=== PATIENT | male | born 1960 | race American Indian/Alaskan Native ===

== ENCOUNTER 2017-01-08 09:28 | Emergency (ER) | payer BC ==
[2017-01-08] MEDS ORDERED: APRESOLINE IV ONE ×2 (10:22→11:26)
--- NOTE | 2017-01-08 10:24 | Emergency Department Report ---
HPI - General Chief Complaint: High BP Time Seen by Provider: 01/08/17 10:10 - HPI HPI: This is a 56-year-old -[place] male who presents to the emergency department, driving himself in to be seen, with complaint of uncontrolled blood pressure and headaches. The headaches have been going on for the past year intermittently but he had a bad headache last night that went into this morning that brought him in to be seen today. The patient was seen by his primary care service on Saturday and a fourth blood pressure medication, amlodipine, was added to his regiment at 5 mg per day. He is also on lisinopril-Hydrochlorothiazide 25/12.5 mg and metoprolol 50 mg daily. He denies any vision change, slurred speech, chest pain, shortness of breath or any neurological deficits. He also has a history of non-insulin dependent diabetes. Patient says that he does not smoke tobacco or use alcohol or any illicit drugs. He does drink 1-2 cups of caffeinated coffee per day. He denies a high salt diet. No recent travel or sick contacts at home. He did not take anything for the headache discomfort prior to presentation. ED Past Medical Hx - Past Medical History Previous Medical History?: Yes Hx Hypertension: Yes Hx Diabetes: Yes - Surgical History Past Surgical History?: Yes Hx Appendectomy: Yes - Social History Smoking Status: Never Smoker Substance Use Type: Prescribed - Medications Home Medications: Home Medications Medication Instructions Recorded Confirmed Last Taken Type HYDROcodone/APAP 5-325 [[place] 1 each PO Q6HR PRN #10 tablet 01/08/17 Unknown Rx 5/325] Lisinopril/Hydrochlorothiazide 1 tab PO DAILY 01/08/17 01/08/17 01/08/17 History Metformin HCl [Fortamet ER] 1,000 mg PO BID 01/08/17 01/08/17 01/07/17 History Metoprolol [Lopressor TAB] 50 mg PO DAILY 01/08/17 01/08/17 01/08/17 History amLODIPine 5 mg PO DAILY 01/08/17 01/08/17 01/08/17 History ED Review of Systems ROS: Stated complaint: HBP Other details as noted in HPI Constitutional: denies: chills, fever Eyes: denies: eye pain, eye discharge, vision change ENT: denies: ear pain, throat pain Respiratory: denies: cough, shortness of breath, wheezing Cardiovascular: denies: chest pain, palpitations Gastrointestinal: denies: abdominal pain, nausea, diarrhea Genitourinary: denies: urgency, dysuria Musculoskeletal: denies: back pain, joint swelling, arthralgia Skin: denies: rash, lesions Neurological: headache. denies: weakness Physical Exam - Physical Exam Vital Signs: Vital Signs 01/08/17 09:43 Temperature 98 F Pulse Rate 79 Respiratory 18 Rate Blood Pressure 182/124 O2 Sat by Pulse 99 Oximetry Physical Exam: GENERAL: The patient is well-developed well-nourished. HEENT: Normocephalic. Atraumatic. Extraocular motions are intact. Patient has moist mucous membranes. Pupils equal reactive to light bilaterally. No nystagmus. NECK: Supple. Trachea is midline. CHEST/LUNGS: Clear to auscultation. There is no respiratory distress noted. HEART/CARDIOVASCULAR: Regular. There is no tachycardia. There is no gallop rub or murmur. ABDOMEN: Abdomen is soft, nontender. Patient has normal bowel sounds. There is no abdominal distention. SKIN: There is no rash. There is no edema. There is no diaphoresis. NEURO: The patient is awake, alert, and oriented. The patient is cooperative. The patient has no focal neurologic deficits. The patient has normal speech. Cranial nerves II through XII grossly intact. MUSCULOSKELETAL: There is no tenderness or deformity. There is no limitation range of motion. There is no evidence of acute injury. ED Course Vital Signs 01/08/17 09:43 Temperature 98 F Pulse Rate 79 Respiratory 18 Rate Blood Pressure 182/124 O2 Sat by Pulse 99 Oximetry ED Medical Decision Making - Lab Data Result diagrams: 01/08/17 Unknown 01/08/17 Unknown - EKG Data -: EKG Interpreted by [facility] EKG shows normal: sinus rhythm, axis, intervals, QRS complexes, ST-T waves (T- wave inversion to the lateral leads) Rate: normal - EKG Data When compared to previous EKG there are: previous EKG unavailable Interpretation: other (sinus rhythm, T-wave inversion to the lateral leads) - Radiology Data Radiology results: report reviewed CT of the head does not show any acute process including no hemorrhage, mass, shift, diffuse edema or skull fracture. - Medical Decision Making 56-year-old male presents to the emergency department with complaint of uncontrolled blood pressure and a headache. Patient was given 2 different doses of 10 mg hydralazine and his blood pressure came down to much more reasonable level. Patient's labs are unremarkable. CT of the head did not show any bleed, shift, mass or any acute process. Patient has no focal, motor or sensory deficits. Cranial nerves are intact. The patient is currently on for blood pressure medications but has room to move up on each of them for the doses. He will follow-up with his primary care doctor for blood pressure medication changes. He will return to the ER with any worsening symptoms or any acute distress. Critical Care Time: No Critical care attestation.: If time is entered above; I have spent that time in minutes in the direct care of this critically ill patient, excluding procedure time. ED Disposition Clinical Impression: Hypertensive urgency Headache Qualifiers: Headache type: unspecified Headache chronicity pattern: episodic headache Intractability: not intractable Qualified Code(s): R51 - Headache Disposition: DISCHARGED TO HOME OR SELFCARE Is pt being admited?: No Condition: Stable Instructions: Acute Headache (ED), Hypertension (ED) Additional Instructions: Please follow-up with your primary care doctor. Keep a blood pressure log. Try to stay away from foods that is high in salt caffeinated products to assist with her blood pressure. Return to the emergency department with any worsening of your symptoms or any acute distress. You've been prescribed a medication that is sedating. Therefore this medication cannot be mixed with alcohol, or taken prior to driving, working, or being responsible for children. Prescriptions: HYDROcodone/APAP 5-325 [[place] 5/325] 1 each PO Q6HR PRN #10 tablet PRN Reason: Pain Referrals: PRIMARY CARE, [Primary Care Provider] - 3-5 Days Time of Disposition: 14:39
[2017-01-08 11:10] LABS: Anion Gap 18 mmol/L; BUN/Creatinine Ratio 14.54; Basophils % (Auto) 0.5 % (0.0-1.8); Blood Urea Nitrogen 16 mg/dL (9-20); Calcium 9.8 mg/dL (8.4-10.2); Carbon Dioxide 27 mmol/L (22-30); Chloride 97.9 mmol/L (98-107); Eosinophils % (Auto) 1.4 % (0.0-4.3); Glucose 174 mg/dL (75-100); Hematocrit 49.2 % (35.5-45.6); Hemoglobin 16.9 gm/dl (11.8-15.2); Mean Corpuscular HGB Conc 34 % (32-34); Mean Corpuscular Hemoglobin 31 pg (28-32); Mean Corpuscular Volume 90 fl (84-94); Platelet Count 198 K/mm3 (140-440); Potassium 4.1 mmol/L (3.6-5.0); Red Blood Count 5.46 M/mm3 (3.65-5.03); Red Cell Distribution Width 12.9 % (13.2-15.2); Sodium 139 mmol/L (137-145); White Blood Count 9.6 K/mm3 (4.5-11.0)
[2017-01-08 12:54] LABS: Bilirubin,Urine NEG (Negative); Blood,Urine NEG (Negative); Ketones,Urine TR mg/dL (Negative); Leukocyte Esterase,Urine NEG (Negative); Nitrite,Urine NEG (Negative); Protein,Urine <15 mg/dL mg/dL (Negative); Urobilinogen,Urine < 2.0 mg/dL (<2.0); WBC,Urine < 1.0 /HPF (0.0-6.0)
[2017-01-08] MEDS ORDERED: TYLENOL PO ONE (13:09)
[2017-01-08 13:23] VITALS: BP 164/93
--- NOTE | 2017-01-08 14:19 | Cat Scan Report ---
Cranial CT without contrast. History: Headache, hypertension. Findings: The brain parenchyma is normal. There is no evidence of hemorrhage, mass, or acute infarct. No extra-axial collections are seen. The posterior fossa is normal. The ventricles are unremarkable. The calvarium is intact. There is a round soft tissue opacity in the left maxillary sinus, partially imaged. Impression: 1. No intracranial abnormalities. 2. Left maxillary sinus polyp or retention cyst, partially imaged.
== END 2017-01-08 14:50 | disposition home or self-care (01) ==
LOC: ED 09:28
DX: I10 Essential (primary) hypertension (principal); R51 Headache; E11.9 Type 2 diabetes mellitus without complications
CPT/HCPCS: 36415; 70450; 80048; 81001; 85025; 93005; 93010; 96374; 96376; 99284; J0360

== ENCOUNTER 2017-06-09 21:06 | Emergency (ER) | payer BC ==
--- NOTE | 2017-06-09 22:11 | Cat Scan Report ---
FINAL REPORT EXAM: CT HEAD/BRAIN WO CON HISTORY: headache TECHNIQUE: Noncontrast serial axial images from skull base to vertex. PRIORS: None. FINDINGS: There is no mass effect or midline shift. There are no abnormal intra or extra-axial fluid collections. Cortical sulci and lateral ventricles are within normal limits for size and configuration. Basilar cisterns are patent. No acute intracranial hemorrhage is identified. Mucosal thickening is seen in the left maxillary sinus. This is incompletely evaluated this study. No acute osseous abnormality is identified. IMPRESSION: 1. No abnormal mass or acute intracranial hemorrhage is identified.
[2017-06-10] MEDS ORDERED: FIORICET PO ONE (01:13)
--- NOTE | 2017-06-10 02:11 | Emergency Department Report ---
ED General Adult HPI - General Chief complaint: Headache Stated complaint: R SIDE HEAD PAIN Time Seen by Provider: 06/10/17 01:13 Source: patient Mode of arrival: Ambulatory Limitations: No Limitations - History of Present Illness Initial comments: Patient is a 56-year-old male no significant past medical history presents with head pain that's been going on since Saturday. Patient states that the pain was sudden and it occurred at the back of his head. The pain is a 4 out of 10 he states he noticed some swelling to the back of his head. He states touching his head makes the pain worse and nothing makes it better. The pain does not radiate anywhere. Patient uses a razor to shave his head. He noticed some swelling and is discoloration on his scalp. She isn't complaining of any other symptoms. Severity scale (0 -10): 7 - Related Data Home Medications Medication Instructions Recorded Confirmed Last Taken Lisinopril/Hydrochlorothiazide 1 tab PO DAILY 01/08/17 01/08/17 01/08/17 Metformin HCl [Fortamet ER] 1,000 mg PO BID 01/08/17 01/08/17 01/07/17 Metoprolol [Lopressor TAB] 50 mg PO DAILY 01/08/17 01/08/17 01/08/17 amLODIPine 5 mg PO DAILY 01/08/17 01/08/17 01/08/17 Previous Rx's Medication Instructions Recorded Last Taken Type HYDROcodone/APAP 5-325 [[place] 1 each PO Q6HR PRN #10 tablet 01/08/17 Unknown Rx 5/325] Butalb/Acetamin/Caff 50-325-40 1 tab PO Q6HR PRN #15 tab 06/10/17 Unknown Rx [Fioricet] Cephalexin [Keflex] 500 mg PO BID #14 cap 06/10/17 Unknown Rx Allergies Allergy/AdvReac Type Severity Reaction Status Date / Time No Known Allergies Allergy Unverified 01/08/17 09:39 ED Review of Systems ROS: Stated complaint: R SIDE HEAD PAIN Other details as noted in HPI Constitutional: denies: chills, fever Eyes: denies: eye pain, eye discharge, vision change ENT: denies: ear pain, throat pain Respiratory: denies: cough, shortness of breath, wheezing Cardiovascular: denies: chest pain, palpitations Endocrine: no symptoms reported Gastrointestinal: denies: abdominal pain, nausea, diarrhea Genitourinary: denies: urgency, dysuria Musculoskeletal: denies: back pain, joint swelling, arthralgia Skin: denies: rash, lesions Neurological: headache. denies: weakness, paresthesias Psychiatric: denies: anxiety, depression Hematological/Lymphatic: denies: easy bleeding, easy bruising ED Past Medical Hx - Past Medical History Previous Medical History?: Yes Hx Hypertension: Yes Hx Diabetes: Yes - Surgical History Past Surgical History?: Yes Hx Appendectomy: Yes - Social History Smoking Status: Never Smoker Substance Use Type: None - Medications Home Medications: Home Medications Medication Instructions Recorded Confirmed Last Taken Type HYDROcodone/APAP 5-325 [[place] 1 each PO Q6HR PRN #10 tablet 01/08/17 Unknown Rx 5/325] Lisinopril/Hydrochlorothiazide 1 tab PO DAILY 01/08/17 01/08/17 01/08/17 History Metformin HCl [Fortamet ER] 1,000 mg PO BID 01/08/17 01/08/17 01/07/17 History Metoprolol [Lopressor TAB] 50 mg PO DAILY 01/08/17 01/08/17 01/08/17 History amLODIPine 5 mg PO DAILY 01/08/17 01/08/17 01/08/17 History Butalb/Acetamin/Caff 50-325-40 1 tab PO Q6HR PRN #15 tab 06/10/17 Unknown Rx [Fioricet] Cephalexin [Keflex] 500 mg PO BID #14 cap 06/10/17 Unknown Rx ED Physical Exam - General Limitations: No Limitations General appearance: alert, in no apparent distress - Head Head exam: Present: atraumatic, normocephalic, other (2 x 3 cm area of tenderness with palpation and slight erythema on back of scalp) - Eye Eye exam: Present: normal appearance - ENT ENT exam: Present: mucous membranes moist - Neck Neck exam: Present: normal inspection - Respiratory Respiratory exam: Present: normal lung sounds bilaterally. Absent: respiratory distress - Cardiovascular Cardiovascular Exam: Present: regular rate, normal rhythm. Absent: systolic murmur, diastolic murmur, rubs, gallop - GI/Abdominal GI/Abdominal exam: Present: soft, normal bowel sounds - Rectal Rectal exam: Present: deferred - Extremities Exam Extremities exam: Present: normal inspection - Back Exam Back exam: Present: normal inspection - Neurological Exam Neurological exam: Present: alert, oriented X3 - Psychiatric Psychiatric exam: Present: normal affect, normal mood - Skin Skin exam: Present: warm, dry, intact, normal color. Absent: rash ED Course Vital Signs 06/09/17 06/10/17 06/10/17 21:20 00:58 00:59 Temperature 97.9 F 97.9 F Pulse Rate 76 76 Respiratory 16 16 16 Rate Blood Pressure 177/117 Blood Pressure 153/104 [Left] O2 Sat by Pulse 98 100 100 Oximetry 06/10/17 01:24 Temperature Pulse Rate Respiratory 16 Rate Blood Pressure Blood Pressure [Left] O2 Sat by Pulse Oximetry - Reevaluation(s) Reevaluation #1: 06/10/17 02:09 In [place] is better after Fioricet I will give patient follow-up and I will send patient home with antibiotics. ED Medical Decision Making - Radiology Data Radiology results: report reviewed, image reviewed CT head: Shows no acute intracranial abnormality - Medical Decision Making Chief medical diagnosis: Cellulitis Differential multiple diagnosis kerion, Folliculitis Head CT had to evaluate if cellulitis has formed an abscess and if it goes deep in the head. CT head shows no acute intracranial abnormality also and patient home with Keflex and Fioricet. Critical care attestation.: If time is entered above; I have spent that time in minutes in the direct care of this critically ill patient, excluding procedure time. ED Disposition Clinical Impression: Kerion, occipital scalp Cellulitis Qualifiers: Site of cellulitis: other site Qualified Code(s): L03.818 - Cellulitis of other sites Disposition: - TO HOME OR SELFCARE Is pt being admited?: No Does the pt Need Aspirin: No Condition: Stable Additional Instructions: Please follow up with the doctor listed below if the antibiotics do not help the swelling on your scalp Prescriptions: Butalb/Acetamin/Caff 50-325-40 [Fioricet] 1 tab PO Q6HR PRN #15 tab PRN Reason: Headache Cephalexin [Keflex] 500 mg PO BID #14 cap Referrals: PRIMARY CARE, [Primary Care Provider] - 3-5 Days BRYCE DEE MD [Staff Physician] - 3-5 Days Time of Disposition: 02:16
[2017-06-10 03:28] VITALS: BP 161/106
== END 2017-06-10 03:28 | disposition home or self-care (01) ==
LOC: ED 21:06
DX: L03.811 Cellulitis of head [any part, except face] (principal); I10 Essential (primary) hypertension; E11.9 Type 2 diabetes mellitus without complications
CPT/HCPCS: 70450

== ENCOUNTER 2017-09-26 18:52 | Emergency (ER) | payer BC | END 2017-09-26 19:33 | disposition left against medical advice (07) | LOC: ED 18:52 | DX: M54.9 Dorsalgia, unspecified (principal); Z53.21 Procedure and treatment not carried out due to patient leaving prior to being seen by health care provider ==

== ENCOUNTER 2017-09-27 07:09 | Emergency (ER) | payer OTHER, BC ==
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
[2017-09-27 09:51] VITALS: BP 186/121
== END 2017-09-27 09:56 | disposition home or self-care (01) ==
LOC: ED 07:09
DX: M62.830 Muscle spasm of back (principal); M54.5 Low back pain; I10 Essential (primary) hypertension; V49.49XA Driver injured in collision with other motor vehicles in traffic accident, initial encounter; Y93.89 Activity, other specified; Y92.89 Other specified places as the place of occurrence of the external cause; Y99.8 Other external cause status
CPT/HCPCS: 72070; 72100; 99283

== ENCOUNTER 2017-11-12 02:15 | Emergency (ER) | payer BC, OTHER ==
[2017-11-12 04:09] VITALS: BP 155/91
== END 2017-11-12 11:58 | disposition left against medical advice (07) ==
LOC: ED 02:15
DX: Z53.21 Procedure and treatment not carried out due to patient leaving prior to being seen by health care provider (principal)